=== PATIENT | female | born 1970 | race Caucasian/White ===

== ENCOUNTER 2024-09-29 12:34 | Emergency (ER) | payer BC, MEDICARE, SELFPAY ==
[2024-09-29 12:44] VITALS: BP 147/70
[2024-09-29 13:08] LABS: % Eosinophils 2.2 % (0-6); % Immature Granulocytes 0.3 % (0-0.5); % Lymphocytes 33.8 % (20.5-51.1); % Monocytes 6.9 % (1.7-9.3); % Neutrophils 55.8 % (42.2-75.2); Absolute Basophils 0.1 10^3/uL (0-0.2); Absolute Eosinophils 0.2 10^3/uL (0-0.7); Absolute Lymphocytes 3.1 10^3/uL (1.2-3.4); Absolute Monocytes 0.6 10^3/uL (0.1-0.6); Absolute Neutrophils 5.1 10^3/uL (1.4-6.5); Hematocrit 44.5 % (37.0-47.0); Hemoglobin 15.4 g/dL (12.0-16.0); Mean Corp Hgb Conc. 34.6 g/dL (33.0-37.0); Mean Corpuscular Hgb 31.5 pg (27.0-31.0); Mean Platelet Volume 9.3 fL (7.4-10.4); Nucleated Red Blood Cells % 0 %; Platelet Count 279 10^3/uL (130-400); Red Blood Cell Count 4.89 10^6/uL (4.20-5.40); Red Cell Dist. Width 12.8 % (11.5-14.5); White Blood Cell Count 9.2 10^3/uL (4.8-10.8)
[2024-09-29 13:20] LABS: ALT (SGPT) 38 U/L (0-35); AST (SGOT) 41 U/L (14-36); Albumin 5.1 g/dl (3.5-5.0); Alkaline Phosphatase 117 U/L (38-126); Blood Urea Nitrogen 16 mg/dl (7-17); Calcium 10.1 mg/dl (8.4-10.2); Carbon Dioxide 23 mmol/L (22-30); Chloride 104 mmol/L (98-107); Glucose 105 mg/dl (70-99); Lipase 179 U/L (23-300); Sodium 142 mmol/L (135-145); Total Bilirubin 0.4 mg/dl (0.2-1.3); Total Protein 8.3 g/dl (6.3-8.2); eGFR > 60.00
[2024-09-29 13:46] LABS: Potassium 3.9 mmol/L (3.5-5.1)
--- NOTE | 2024-09-29 15:52 | ED.GENMED ---
History of Present Illness
General
Chief Complaint: Dizziness
Source: patient
Exam Limitations: none
Time Seen by Provider: 09/29/24 15:48
Nursing documentation reviewed up to this point in time: agreed with
History of Present Illness
History of Present Illness:
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 Patient
states that this is not a new problem for her. Patient reports that ever since her traumatic brain injury a few years ago, she gets intermittent dizzy spells with is associated with nausea and sometimes vomiting. Patient states that she has
required many ER visits in the past for symptomatic management. She is currently visiting from [place]. Patient has followed up with a neurologist for this issue, she also sees an ENT. Patient is on Qulipta for migraines. Patient states
that the symptoms will normally resolve on its own or with her migraine medication, however patient feels as though her symptoms have persisted longer than normal and she is also started to develop diarrhea today. Patient denies any fevers or
chills. Patient denies any abdominal pain. Patient denies any chest pain or shortness of breath. Patient has no syncopal episodes. Patient states that her symptoms of vertigo caused her to feel off balance. Patient states that she has had
multiple recent CAT scans of her head. Patient denies any weakness on the side of her body versus other, any facial droop, any visual loss, difficulty speaking. Patient currently notes a posterior headache.
Review of Systems
Review of Systems
All Other Systems: ROS reviewed and negative except as documented in HPI and ROS
Phy Exam
Physical Exam
Physical Exam:
General: Patient is well appearing and in no acute distress; non-toxic
Skin: Warm and dry, no rashes or lesions
Head: Normocephalic, atraumatic
Eyes: Sclera non-icteric. EOMs intact. PERRLA.
Cardiac: Regular rate and rhythm, no murmurs.
Peripheral Vascular: No lower extremity swelling or edema
Pulm: Normal respiratory effort, no wheezes, rales, rhonchi
Abdomen: No abdominal tenderness to palpation
Neuro: CN II-XII intact, no focal neurologic deficits. 5 out of 5 strength in bilateral upper and lower extremities. Normal finger-nose, [id number] testing, normal gait. No pronator drift.
Psychiatric: Appropriate mood and affect.
Course
Orders/Labs/Results
Orders:
Orders
09/29/24 12:38
Electrocardiogram (*1) Urgent
Reason for Study: Vertigo / Dizzy
EKG- Treatment ONCE
09/29/24 12:57
Complete Blood Count/With Diff Urgent
Comprehensive Metabolic Panel Urgent
Lipase Urgent
09/29/24 16:30
0.9% Sodium Chloride 500 ml [Nss] 500 ml IV BOLUS
Diphenhydramine [Benadryl] 25 mg IV NOW STA
Metoclopramide [Reglan] 10 mg IV NOW STA
Abnormal Lab Results
09/29/24
12:57
MCH 31.5 H pg
(27.0-31.0)
Glucose 105 H mg/dl
(70-99)
AST 41 H U/L
(14-36)
ALT 38 H U/L
(0-35)
Total Protein 8.3 H g/dl
(6.3-8.2)
Albumin 5.1 H g/dl
(3.5-5.0)
09/29/24 12:57
09/29/24 12:57
Vital Signs
Initial and Last Documented VS:
Initial Vital Signs
Temp
97.6 F
09/29/24 12:43
Last Documented Vital Signs
Temp Pulse Resp BP Pulse Ox
97.6 F 97 17 147/70 98
09/29/24 12:43 09/29/24 16:39 10/31/24 16:39 09/29/24 12:44 09/29/24 16:39
MDM/Problems Addressed
Differential Diagnosis Includes:
Differentials include tension headache, migraine headache, peripheral vertigo, vasovagal presyncope, viral syndrome, electrolyte derangement
MDM/Problems Addressed:
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 Patient
states that this is not a new problem for her. Her symptoms are worse with any movement, and she feels like she will fall over. Exam, she is well-appearing, she is not actively vomiting, she has no focal neurologic deficits. She started develop
diarrhea today. I suspect that a viral syndrome is exacerbating her underlying episodes of recurrent chronic dizziness. Patient also has a headache, patient does have a history of migraine disorders. Patient was treated with IV Reglan, Benadryl
and IV fluids. On reassessment, patient states that her headache is resolved and her symptoms have improved. Patient no longer feels dizzy. I ambulated with patient to the bathroom and patient did well. Nursing ambulated with patient throughout
the emergency department and she not have reproduction of her symptoms. Her CBC and CMP are unremarkable. She had an echocardiogram done which showed normal sinus rhythm with no ischemic changes. Patient requesting to be discharged, I think this
is reasonable, discussed follow-up with patient's neurologist. Reviewed case with my attending. Patient stable for discharge
Chronic conditions affecting care:
TIA, hypothyroidism, hypertension, hyperlipidemia TBI
*Pulse Oximetry
Patient hypoxic: no
*Critical Care Note
Total Time (30-74mins, 75-104mins- exclusive of procedures): Not Applicable
Data Reviewed
Review of Other/Old Records Reveals: Records (No previous ER physician documentation to review) and Discharge Summary (No discharge summary in [facility] to review )
Source: patient
Prescriptions/Medications Considered But Not Given:
n/a
Further Testing Considered But Not Given:
n/a
Patient Management
Escalation/DeEscalation of care consider admission/obs:
Admit not indicated, patient stable for discharge
ED Attending Note
-
Portions of this chart may have been created with voice recognition software.� Occasional wrong word or��sound alike� substitutions may have occurred due to the inherent limitations of voice recognition software.
Discharge Plan
Departure
Patient Disposition: Home (Routine Discharge)
Date of Disposition: 09/29/24
Time of Disposition: 17:51
Patient with high blood pressure during this ER visit?: Yes
Condition: Good
Discharge Problem:
Dizzinesses, Nausea and vomiting
Instructions: Vertigo (a type of dizziness), Dizziness, BLOOD PRESSURE
Prescriptions:
New
ondansetron 4 mg tablet,disintegrating
4 mg PO Q8H PRN (Reason: nausea and vomiting) Qty: 8 0RF
Referrals:
UNKNOWN - PT DOES,NOT KNOW [Family Provider] -
Activity Restrictions/Additional Instructions:
Please call your neurologist to schedule a follow up appointment.
Please return to the emergency department today experience numbness or tingling one-sided body, difficulty walking, changes to your speech, loss of vision, syncopal episodes, weakness, fevers, intractable nausea or vomiting, chest pain, shortness of
breath, or any other signs or symptoms concerning to you.
Interventions
Interventions:
*Risk Screen - Suicide Last Done: 09/29/24 12:48
*General Assessment Last Done: 09/29/24 12:48
*Neglect/Abuse Screening Last Done: 09/29/24 12:48
ED- Fall Risk Assessment Last Done: 09/29/24 16:43
*ED COVID-19 Vaccine History Last Done: 09/29/24 12:48
*Nursing Disposition Last Done: 09/29/24 18:46
ED- Neurological Assessment Last Done: 09/29/24 16:43
ED- Cardiac Assessment Last Done: 09/29/24 16:43
ED Swallowing Screen Last Done: 09/29/24 16:43
Discharge Date and Time
Discharge Date/Time: 09/29/24 18:47
Print Language: BULGARIAN
--- NOTE | 2024-09-29 16:06 | EDRN ---
Ana Maria JORGENSEN currently at the pts bedside
[2024-09-29] MEDS: REGLAN 10 MG IV (16:35)
[2024-09-29] MEDS: NSS 500 IV (16:35)
[2024-09-29] MEDS: BENADRYL 25 MG IV (16:35)
[2024-09-29 16:43] VITALS: BMI 33.3
== END 2024-09-29 18:47 | disposition home or self-care (01) ==
LOC: EMR 12:34
PROVIDERS: EMERGENCY PHYSICIAN Emergency Medicine
DX: R42 Dizziness and giddiness (principal); R11.2 Nausea with vomiting, unspecified; I10 Essential (primary) hypertension; E03.9 Hypothyroidism, unspecified; E78.5 Hyperlipidemia, unspecified; Z86.73 Personal history of transient ischemic attack (TIA), and cerebral infarction without residual deficits; Z87.820 Personal history of traumatic brain injury; G43.909 Migraine, unspecified, not intractable, without status migrainosus
CPT/HCPCS: 99284; 96374; 96375; 96361; 80053; 83690; 85025; 93005